=== PATIENT | female | born 1970 | race Caucasian/White ===

== ENCOUNTER 2020-12-17 18:03 | Emergency (ER) | payer MEDICAID ==
[~2020-12-17] VITALS: Ht 167.6 cm; Wt 98.4 kg
--- NOTE | 2020-12-17 18:14 | NUR ---
YOCASTA, BUCCARO, INTERVIEWING PT IN TRIAGE.
--- NOTE | 2020-12-17 18:21 | NUR ---
TO WR PER WC.
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
[2020-12-17 19:24] VITALS: BP 160/92
--- NOTE | 2020-12-17 19:25 | NUR ---
PER PT, "I DESPERATELY NEED IV FLUIDS OR A CORTISONE SHOT"
[2020-12-17] MEDS ORDERED: LORazepam 1MG TABLET ONE (19:52)
[2020-12-17] MEDS ORDERED: LORazepam 1MG TABLET PO ONE (20:00)
--- NOTE | 2020-12-17 20:24 | NUR ---
PT AMBULATED TO [facility], PROVIDED TAXI VOUCHER.
== END 2020-12-17 20:26 | disposition home or self-care (01) ==
LOC: ED 20:00
DX: I10 Essential (primary) hypertension (principal); Z72.9 Problem related to lifestyle, unspecified
CPT/HCPCS: 99283

== ENCOUNTER 2020-12-18 16:58 | Emergency (ER) | payer MEDICAID ==
[~2020-12-18] VITALS: Ht 167.6 cm; Wt 105.0 kg
[2020-12-18 17:18] VITALS: BP 183/103
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
--- NOTE | 2020-12-18 18:47 | NUR ---
REPORT TO CAIO CONCEPCION.
--- NOTE | 2020-12-18 18:47 | NUR ---
Report from Evelyn KEARNEY
[2020-12-18] MEDS ORDERED: ZIPRASIDONE 20 MG INJ IM ONE ×2 (20:00→20:38)
--- NOTE | 2020-12-18 20:26 | NUR ---
pt denied lab work
[2020-12-19] MEDS ORDERED: zyprexa (23:02)
[2020-12-19] MEDS ORDERED: LISI-170 PO (23:02)
[2020-12-19] MEDS ORDERED: metformin (23:02)
== END 2020-12-18 21:35 | disposition home or self-care (01) ==
LOC: ED 21:30
DX: F29 Unspecified psychosis not due to a substance or known physiological condition (principal); R07.89 Other chest pain; I10 Essential (primary) hypertension; R11.0 Nausea; R10.9 Unspecified abdominal pain; Z59.0 Homelessness
CPT/HCPCS: 71045; 93005; 96372; 99283; J3486

== ENCOUNTER 2020-12-19 22:43 | Emergency (ER) | payer MEDICAID ==
[~2020-12-19] VITALS: Ht 167.6 cm; Wt 104.5 kg
[2020-12-19] MEDS ORDERED: LISI-170 PO (23:02)
[2020-12-19] MEDS ORDERED: zyprexa (23:02)
[2020-12-19] MEDS ORDERED: metformin (23:02)
[2020-12-19] MEDS ORDERED: LORazepam 1MG TABLET ONE (23:20)
--- NOTE | 2020-12-19 23:25 | NUR ---
Ambulated to bathroom w/o difficulty
[2020-12-19] MEDS ORDERED: LORazepam 1MG TABLET PO ONE (23:30)
[2020-12-19 23:34] LABS: BASOPHILS % (AUTO) 1 % (0-1); EOSINOPHILS % (AUTO) 3 % (1-7); LYMPHOCYTES % (AUTO) 27 % (22-44); MEAN CORPUSCULAR HEMOGLOBIN 28.6 pg (27.0-34.8); MEAN CORPUSCULAR HGB CONC 32.8 g/dL (32.4-35.8); MEAN PLATELET VOLUME 9.5 fL (7.4-10.4); MONOCYTES % (AUTO) 10 % (2-9); NEUTROPHILS % (AUTO) 60 % (42-75); PLATELET COUNT 256 x10^3/uL (130-400); RED BLOOD COUNT 4.63 x10^6/uL (3.82-5.3); RED CELL DISTRIBUTION WIDTH 13.8 % (9.6-15.2)
[2020-12-19 23:41] LABS: ALANINE AMINOTRANSFERASE 71 U/L (12-78); ALBUMIN 3.3 g/dL (3.4-5.0); ANION GAP 6 mmol/L (5-15); CALCIUM 8.3 mg/dL (8.5-10.1); CHLORIDE 105 mmol/L (98-107); CREATININE 0.56 mg/dL (0.55-1.02)
[2020-12-19 23:46] LABS: ALKALINE PHOSPHATASE 142 U/L (45-117); BILIRUBIN,TOTAL 0.3 mg/dL (0.2-1.0); TOTAL PROTEIN 7.3 g/dL (6.4-8.2); TROPONIN I < 0.015 ng/mL (0.000-0.045)
[2020-12-20 00:15] VITALS: BP 183/99
--- NOTE | 2020-12-20 00:16 | NUR ---
pt sleeping, snoring noted. no s/s of distress
== END 2020-12-20 01:19 | disposition home or self-care (01) ==
LOC: ED 23:03
DX: R07.9 Chest pain, unspecified (principal); I10 Essential (primary) hypertension; R51.9 Headache, unspecified; M79.10 Myalgia, unspecified site; R94.31 Abnormal electrocardiogram [ECG] [EKG]
CPT/HCPCS: 36415; 71045; 80053; 83690; 84484; 85025; 93005; 99285

== ENCOUNTER 2020-12-22 12:01 | Emergency (ER) | payer MEDICAID ==
[~2020-12-22] VITALS: Ht 167.6 cm; Wt 103.5 kg
[~2020-12-22 12:01] MED LIST: LISI-170 PO; metformin; zyprexa
[2020-12-22] MEDS ORDERED: SODIUM CHLORIDE 0.9% 1,000ML IVBOLUS ONE (13:00)
[2020-12-22 13:11] LABS: BASOPHILS % (AUTO) 1 % (0-1); EOSINOPHILS % (AUTO) 2 % (1-7); LYMPHOCYTES % (AUTO) 24 % (22-44); MEAN CORPUSCULAR HEMOGLOBIN 29.2 pg (27.0-34.8); MEAN CORPUSCULAR HGB CONC 34.1 g/dL (32.4-35.8); MEAN PLATELET VOLUME 9.5 fL (7.4-10.4); MONOCYTES % (AUTO) 10 % (2-9); NEUTROPHILS % (AUTO) 62 % (42-75); PLATELET COUNT 260 x10^3/uL (130-400); RED BLOOD COUNT 4.73 x10^6/uL (3.82-5.3); RED CELL DISTRIBUTION WIDTH 13.9 % (9.6-15.2)
--- NOTE | 2020-12-22 13:18 | NUR ---
PT BACK FROM XRAY
[2020-12-22 13:21] LABS: ALANINE AMINOTRANSFERASE 71 U/L (12-78); ALBUMIN 3.2 g/dL (3.4-5.0); ANION GAP 6 mmol/L (5-15); CALCIUM 8.6 mg/dL (8.5-10.1); CHLORIDE 103 mmol/L (98-107); CREATININE 0.59 mg/dL (0.55-1.02)
[2020-12-22 13:23] LABS: ALKALINE PHOSPHATASE 148 U/L (45-117); BILIRUBIN,TOTAL 0.4 mg/dL (0.2-1.0); TOTAL PROTEIN 7.6 g/dL (6.4-8.2)
[2020-12-22] MEDS ORDERED: ENALAPRILAT 1.25 MG/ML, 1ML ONE (13:24)
[2020-12-22] MEDS ORDERED: ENALAPRILAT 1.25 MG/ML, 2ML IV ONE (13:30)
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
[2020-12-22 14:08] LABS: MICROSCOPIC AUTO
[2020-12-22 14:27] LABS: AMPHETAMINE SCREEN, URINE Negative (Negative); BARBITURATE SCREEN, URINE Negative (Negative); BENZODIAZEPINE SCREEN, URINE Negative (Negative); CANNABINOID SCREEN, URINE Negative (Negative); COCAINE SCREEN, URINE Negative (Negative); METHADONE SCREEN, URINE Negative (Negative); OPIATE SCREEN, URINE Negative (Negative)
[2020-12-22] MEDS ORDERED: CEFTRIAXONE 1,000 MG in DEXTROSE 5% 50 ML IVPB ONE (15:00)
[2020-12-22 15:09] LABS: SALICYLATE LEVEL < 1.7 mg/dL (2.8-20.0)
--- NOTE | 2020-12-22 15:17 | NUR ---
PER SAGE MOISES NO NEED FOR CULTURES PRIOR TO ABX ADM.
--- NOTE | 2020-12-22 15:45 | NUR ---
psych flower garcia has completed assessment, pt denies si/hi.
--- NOTE | 2020-12-22 16:06 | NUR ---
report taken from break jamir josue. edmd brii notified repeat bp 173/105, declined to order additional tx. per edmd, blood cx not indicated prior to abx admin. rocephin infusing. pt a&o, resps even and unlabored, nsr on cardiac cath lab manager with no ectopy.
[2020-12-22 17:06] VITALS: BP 188/107
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
--- NOTE | 2020-12-22 17:48 | NUR ---
corrugated sheet material sheeter note: Pt was given a taxi voucher to transport her to [facility] per her plan with Al[facility] CORREIA. Pt reports that she does not want to go to [facility] and would like to have a bus pass. Pt provided with bus pass per request. Pt ambulatory down sidewalk with steady gait.
== END 2020-12-22 17:19 | disposition home or self-care (01) ==
LOC: ED 12:33
DX: N30.00 Acute cystitis without hematuria (principal); I10 Essential (primary) hypertension; F22 Delusional disorders
CPT/HCPCS: 36415; 74021; 80053; 80299; 80307; 80320; 80329; 81001; 83690; 85025; 87086; 96361; 96365; 96375; 99285; J0696; J7030; G0480